=== PATIENT | male | born 1960 | race Caucasian/White ===

== ENCOUNTER 2020-08-10 00:54 | Observation (INO) | payer BC ==
[~2020-08-10] VITALS: Ht 185.4 cm; Wt 96.2 kg
[2020-08-10 01:17] LABS: HEMOGLOBIN 16.3 gm/dl (14.0-17.5); RED BLOOD COUNT 4.98 M/UL (4.20-5.50); WHITE BLOOD COUNT 8.2 K/UL (4.5-11.0)
[2020-08-10 01:48] LABS: BUN/CREATININE RATIO 21 (0-10)
[2020-08-10] MEDS ORDERED: FLOMAX 0.4 MG0.4 MG PO (08:08)
[2020-08-10] MEDS ORDERED: PRAVASTATIN SOD80 MG PO (08:08)
[2020-08-10] MEDS ORDERED: VALSARTAN160 MG PO (08:09)
[2020-08-10] MEDS ORDERED: TESTOSTERO200 MG/1 M IM (08:13)
[2020-08-11 03:22] LABS: BUN/CREATININE RATIO 16 (0-10)
[2020-08-11] MEDS ORDERED: LOPRESSOR 25 MG25 MG PO (16:15)
[2020-08-11] MEDS ORDERED: ELIQUIS 5 MG TAB5 MG PO (16:15)
== END 2020-08-11 17:31 | disposition home or self-care (01) ==
LOC: ER1 00:54 → MED SURG 4 05:13 → CDU 05:13 → MED SURG 4 06:55 → M/S 11:29
PROVIDERS: Emergency Medicine; Internal Medicine; ADMIT Internal Medicine
DX: R55 Syncope and collapse (principal); I48.91 Unspecified atrial fibrillation; I10 Essential (primary) hypertension; E66.9 Obesity, unspecified; R73.03 Prediabetes; F12.10 Cannabis abuse, uncomplicated; R19.7 Diarrhea, unspecified; E87.6 Hypokalemia; E78.5 Hyperlipidemia, unspecified; I20.9 Angina pectoris, unspecified; N40.0 Benign prostatic hyperplasia without lower urinary tract symptoms; F43.21 Adjustment disorder with depressed mood; Z82.49 Family history of ischemic heart disease and other diseases of the circulatory system; Z20.822 Contact with and (suspected) exposure to COVID-19; Z79.01 Long term (current) use of anticoagulants; R79.89 Other specified abnormal findings of blood chemistry; Z87.891 Personal history of nicotine dependence
CPT/HCPCS: ECHO; 36415; 36600; 70450; 71045; 73080; 73564; 78452; 80048; 80053; 80061; 80307; 82550; 82553; 82607; 82746; 82803; 82962; 83036; 83735; 83874; 83880; 84100; 84439; 84443; 84484; 85025; 85379; 85610; 85730; 93005; 93017; 93306; 96372; 96374; 96375; 99285; A9502; G0378; J1650; Q9967; U0002